=== PATIENT | female | born 1940 | race Caucasian/White ===

== ENCOUNTER 2017-11-10 09:32 | Day surgery (SDC) | payer MEDICARE, OTHER ==
[2017-11-09 13:45] VITALS: BP 134/77
[~2017-11-10] VITALS: Ht 166.4 cm; Wt 71.7 kg
[~2017-11-10 09:32] MED LIST: ATEN50TA41 PO; BIOT25005 PO; EQUATE ARTHRITIS PO; ESTR0.5T PO; FENO160T PO; LEVO88TA4 PO; LOSA1TAB19 PO; LOVA20TA2 PO; MAGN400C PO; METF750T2 PO; OMEP20TA62 PO
[2017-11-10] MEDS ORDERED: SODIUM CHLORIDE 0.9% 1,000 ML IV SCH (09:42)
[2017-11-10] MEDS ORDERED: MIDAZOLAM 1 MG/ML, 2ML ONE (10:38)
[2017-11-10] MEDS ORDERED: ISOPROTERENOL 0.2MG/ML, 5ML ONE (10:38)
[2017-11-10] MEDS ORDERED: FENTANYL PF 100 MCG/2ML ONE (10:38)
[2017-11-10] MEDS ORDERED: LIDOCAINE-MPF 2% ,5ML ONE (11:01)
[2017-11-10] MEDS ORDERED: LIDOCAINE 2%, 2ML ONE (11:02)
[2017-11-10] MEDS ORDERED: ADENOSINE 6 MG/2 ML ONE (11:28)
== END 2017-11-10 16:24 ==
LOC: CACL 09:32
PROVIDERS: ATTEND Internal Medicine Cardiovascular Disease
DX: I47.1 Supraventricular tachycardia (principal); E11.9 Type 2 diabetes mellitus without complications; I10 Essential (primary) hypertension; E03.9 Hypothyroidism, unspecified; Z87.39 Personal history of other diseases of the musculoskeletal system and connective tissue; Z88.8 Allergy status to other drugs, medicaments and biological substances
CPT/HCPCS: 71046; 93613; 93621; 93623; 93653; 99156; C1730; C1894; C2630; J2250; J3010; J3490; J0153

== ENCOUNTER → 2018-02-10 | Outpatient (CLI) | payer MEDICARE, OTHER | END | disposition home or self-care (01) | LOC: CVU 11:01 | PROVIDERS: ATTEND Internal Medicine Cardiovascular Disease | DX: I83.893 Varicose veins of bilateral lower extremities with other complications (principal); I87.2 Venous insufficiency (chronic) (peripheral) | CPT/HCPCS: 93970 ==